=== PATIENT | male | born 1970 | race Caucasian/White ===

== ENCOUNTER 2018-12-23 14:04 | Outpatient (REF) | payer SELFPAY ==
[2018-12-23 19:23] LABS: ALT 78 U/L (16-63); Anion Gap 9.7 mmol/L (3-11); BUN 18 mg/dL (7-18); CO2 25.3 mmol/L (21.0-32.0); CREATININE 0.79 mg/dL (0.70-1.30); Calcium 8.8 mg/dL (8.5-10.1); Chloride 102 mmol/L (98-107); Glucose 120 mg/dL (70-100); LDL CHOLESTEROL 119 mg/dL (<100); Potassium 3.9 mmol/L (3.5-5.1); Sodium 137 mmol/L (136-145); TSH 1.53 uIU/mL (0.36-3.74)
[2018-12-23 19:39] LABS: ESR 3 mm/hr (0-15)
[2018-12-26 13:04] LABS: Lyme Ab w Rflx to Lyme Confirm Negative
== END 2018-12-23 14:24 ==
LOC: NCHCN 14:04
PROVIDERS: PCP Nurse Practitioner Family; Visit Provider Internal Medicine
DX: E11.9 Type 2 diabetes mellitus without complications (principal); I10 Essential (primary) hypertension; M13.862 Other specified arthritis, left knee
CPT/HCPCS: 80048; 83721; 85652; 84443; 84460; 86618

== ENCOUNTER 2020-09-25 10:54 | Outpatient (REF) | payer SELFPAY ==
[2020-09-25 21:05] LABS: ALT 43 U/L (16-63); AST 22 U/L (15-37); Albumin 4.3 g/dL (3.4-5.0); Alkaline Phosphatase 57 U/L (46-116); Anion Gap 8.9 mmol/L (3-11); BUN 16 mg/dL (7-18); Bilirubin, Total 0.8 mg/dL (0.2-1.0); CO2 27.1 mmol/L (21.0-32.0); CREATININE 0.7 mg/dL (0.70-1.30); Calcium 8.8 mg/dL (8.5-10.1); Calculated LDL 121 mg/dL (<100); Chloride 102 mmol/L (98-107); Cholesterol 184 mg/dL (<200); Glucose 83 mg/dL (74-106); HDL Cholesterol 47 mg/dL (40-60); Sodium 138 mmol/L (136-145); Total Protein 7.6 g/dL (6.4-8.2); Triglyceride 82 mg/dL (<150)
[2020-09-25 22:05] LABS: COMMENT (LAB VIEW ONLY) 26.57 mg/dL; Microalb ug/mg Crea 7.2 ug/mg Cr
== END 2020-09-25 10:55 | disposition home or self-care (01) ==
LOC: NCHCN 10:54
PROVIDERS: PCP Nurse Practitioner Family; Visit Provider Physician Assistant
DX: E11.9 Type 2 diabetes mellitus without complications (principal); I10 Essential (primary) hypertension
CPT/HCPCS: 80053; 80061; 82043; 82570

== ENCOUNTER 2021-11-19 09:03 | Day surgery (SDC) | payer SELFPAY ==
--- NOTE | 2021-11-19 07:17 | W.ANESPRE ---
General Info Date of Service Date Performed: 11/19/21 Height: 5 ft 3 in Weight: 74.559 kg Body Mass Index (BMI): 29.1 Surgical Procedure: Operation Date: 11/19/21 11:35 Proposed Procedure Side Surgeon p Colonoscopy Leilani Gerardo MD Meds Allergies and Home Medications Allergies Allergy/AdvReac Type Severity Reaction Status Date / Time No Known Allergies Allergy Verified 11/19/21 10:00 Home Medication Medication Instructions Recorded aspirin 81 mg tablet,delayed 81 mg PO DAILY 07/18/21 release (Adult Aspirin Regimen) canagliflozin 100 mg tablet 100 mg PO DAILY 07/18/21 (Invokana) glipizide 10 mg tablet, extended 10 mg PO DAILY 07/18/21 release 24 hr hydrochlorothiazide 25 mg tablet 25 mg PO DAILY 07/18/21 lisinopril 10 mg tablet 10 mg PO DAILY 07/18/21 metformin 500 mg tablet 1,000 mg PO BID 07/18/21 Current Visit Medications: Current Medications Generic Name Dose Route Start Last Admin Trade Name Bookerq PRN Reason Stop Dose Admin Ringer's Solution 1,000 mls @ 80 mls/hr 11/19/21 06:00 IV 12/18/21 23:59 INFUSION THI IV Miscellaneous Supplies 1 each 11/19/21 06:00 Iv Access IV 12/18/21 23:59 DIRECTED THI Sodium Chloride 0 ml 11/19/21 06:00 Normal Saline Flush 10 Ml Syr IV 12/18/21 23:59 PRN PRN Sodium Chloride 0 ml 11/19/21 06:00 Normal Saline 10 Ml Vial IJ 12/18/21 23:59 DIRECTED PRN Sterile Water 0 ml 11/19/21 06:00 Water,Injection,Sterile 10 Ml Vial IJ 12/18/21 23:59 DIRECTED PRN PFSH Active Problems Active Problems: Problem Status Onset Code Hypertension I10 Screening for colon cancer Z12.11 Medical History Medical History Arthritis of left knee Diabetes type 2, controlled GERD (gastroesophageal reflux disease) Seasonal allergies Vital Signs and Lab Results Lab Results Blood Type / Crossmatch: No Data to Display Complete Blood Count: No Data to Display Complete Metabolic Panel: No Data to Display Liver Function Panel: No Data to Display Coagulation Panel: No Data to Display Cardiac Panel: No Data to Display Arterial Blood Gas: No Data to Display Venous Blood Gas: No Data to Display Pancreas Panel: No Data to Display Thyroid Panel: No Data to Display Infectious Disease: No Data to Display Blood Cultures: No Data to Display Toxicology Panel: No Data to Display Anesthesia Assessment and Plan Anesthesia History Personal History: No History of Anesthesia Complications Family History: No Family History of Anesthesia Complications Exercise Tolerance Exercise Tolerance: Metabolic Equivalents>4 Pertinent Negatives Pertinent Negatives: No Symptoms of GERD, No Major Cardiovascular Symptoms or Complaints, No Major Pulmonary Symptoms or Complaints and No History of CVA/TIA Cardiac & Pulmonary Exam Cardiac Exam: Normal S1/S2 Heart Sounds Pulmonary Exam: Clear Bilateral Breath Sounds Implantable Cardiac Device Does patient have a Pacemaker or an ICD?: No Airway Exam Known Difficult Airway: No Mallampati Class: 1 Mouth Opening: Normal (> 3cm) Thyromental Distance: Greater than 3 cm Neck Range of Motion: Full ROM Neck Circumference: Normal Teeth Condition: Normal Dentition Airway Comments: #41 painful ASA Classification ASA Score: ASA 2 Emergency Case?: No NPO Status NPO Status: NPO Clears >2 hours, Solids >8 hours Anesthesia Plan Resuscitation Status: Full Code Anesthesia Technique: General Anesthesia Airway Planned: Natural Airway Monitors Used: Standard Monitors Preoperative Comments:: 51 yo male for first colo. Sig PMHx: DM2 (glipizide, metformin, canagliflozin), GERD, HTN (lisinopril).
--- NOTE | 2021-11-19 07:40 | COLE_ITS ---
Colonoscopy Report Date of procedure: 11/19/21 Pre-op diagnosis general: colon cancer screening Post-op diagnosis procedure note: same Procedure: Colonoscopy Surgeon: Leilani Gerardo Anesthesia Type: General:No Airway Estimated blood loss (mL): 0 Pathology: none sent Complications: None Disposition: same day Indications: The patient? is a pleasant? 51-year-old male who is here to discuss another screening colonoscopy. ? He denies any changes in bowel habits, melena, hem atochezia, unintentional weight loss or family history of colon cancer.? The procedure and risks were discussed.? The prep was reviewed in detail.? Risks, benefits and complications have been reviewed. Complications include but are not limited to bleeding, pain, perforation, missed small lesion/polyp, sore throat, aspiration and adverse reaction to the medications. Questions were entertained and answered to their satisfaction and they wished to proceed. No guarantees were given or implied.? All instruction and explanations of the procedure were given in greenlandic. Prep: Miralax/Dulcolax Procedure Start Time: 11:05 Procedure End Time: 11:29 Retraction Time: 12 minutes Findings: Normal Procedure Description: After informed consent was obtained the patient was taken to the procedure room and placed in a left decubitous position. Monitors were applied and a time out was done. The patients name, date of , procedure, allergies to medications and metal in their body was reviewed. The patient was then sedated. Once sedated and comfortable a rectal exam was done. External exam was normal. Internal exam revealed a normal sphincter tone and no palpable masses. The prostate was smooth. The scope was then introduced and retro-flexed. no internal hemorrhoids, polyps or masses were identified on retro-flexion. The scope was then advanced to the cecum without difficulty. The ileocecal vlave and appendiceal orifice were identified. The prep was good. The scope was then slowly retracted over 12 minutes back into the rectum. There were no polyps and no diverticulosis was noted. The scope was removed and the patient was woken up and taken back to Same day surgery in stable condition. The patient tolerated the procedure well and there were no immediate complications. Follow up: The patient should follow up in 10 years unless they develop changes in bowel habits or other new gastrointestinal complaints.
--- NOTE | 2021-11-19 07:41 | W.PM.DSUDISC ---
Discharge Plan Disposition Patient Disposition: HOME Condition: Good Discharge Details Reason For Visit: colonoscopy Attending Provider: Leilani Gerardo Primary Care Provider: Anusha Mccurdy Home Meds and New Rx's Prescriptions: Continued lisinopril 10 mg tablet 10 mg PO DAILY metformin 500 mg tablet 1,000 mg PO BID hydrochlorothiazide 25 mg tablet 25 mg PO DAILY aspirin [Adult Aspirin Regimen] 81 mg tablet,delayed release (DR/EC) 81 mg PO DAILY Invokana 100 mg tablet 100 mg PO DAILY glipizide 10 mg tablet extended release 24hr 10 mg PO DAILY Discharge Instructions Additional Instructions: [place]: Todo estaba normal La proxima Colonoscopia deberia ser en 10 anos Porfavor bimal a la officina si tiene: Fiebres >101.5 Nausea y Vomitos Dolor del abdomen Sie tiene benjamin del Recto que es mas de 1/2 taza El Abdoemn esta alejandra y no puede pasar gas por el recto DAY SURGERY UNIT POST ENDOSCOPY INSTRUCTIONS Instructions for everyone who is given Anesthesia: For your safety, please do the following for the next 24 Hours: a. Do not drive or operate dangerous equipment b. Do not drink alcohol beverages or use any recreational drugs for the first 24 hours or while taking pain medications. The medications in your body may have a reaction that can be dangerous. c. Do not make any important decisions or sign any important papers 1. Generally there are no restrictions on your activity after a day or so has gone by, but you may feel a bit fatigued for a few days. 2. After you arrive home you may have a light meal and return to a normal diet as you can tolerate it without feeling sick to your stomach. 3. After surgery, you may feel pain or discomfort. This should be only transient, but if it persists please contact your doctor. 4. If there are any questions regarding the findings of your procedure, please feel free to contact your doctor. 6. If you are unable to contact your doctor with a problem, contact the hospital at [phone]. 7. Continue all your regular medications unless directed otherwise. I understand the above instructions and have no questions. Signature of Patient or Responsible Adult Escort Date/Time Name of Responsible Adult Escort Signature of Nurse Date/Time Activity:: Activity as Tolerated Diet:: As Tolerated Discharge Orders Discharge Orders: Discharge Order (Routine); Ordered 11/19/21 Ordered By: Leilani Gerardo
[2021-11-19] MEDS: Lactated Ringers 1,000 ML 80 ML IV (10:00)
[2021-11-19 10:07] VITALS: BP 135/96; PULSE 66; RESP 15; TEMP 36.3; O2SAT 99
[2021-11-19 10:47] VITALS: BMI 29.1
[2021-11-19 11:40] VITALS: BP 123/96; PULSE 64; RESP 15; TEMP 36.5; O2SAT 98
--- NOTE | 2021-11-19 11:41 | ANES.POST_ITS ---
Postoperative Evaluation Date, Time and Location Date Performed: 11/19/21 Time Performed: 11:41 Patient Location: Day Surgery Unit Vital Signs Most Recent Imported Vital Signs: Most Recent Vital Signs Temp Pulse Resp BP Pulse Ox 36.3 C L 66 15 135/96 H 99 11/19/21 10:07 11/19/21 10:07 11/19/21 10:07 11/19/21 10:07 11/19/21 10:07 Most Recent Manually Entered Vital Signs: Adult Blood Pressure: 123/96 Heart Rate: 87 Respirations: 12 Oxygen Saturation (%): 98 Temperature (C): 36.3 C Pain Score (0-10 Scale): 0 Pain Score Most Recent Pain Score: Most Recent Pain Score Pain Level 0 11/19/21 10:07 Assessment Mental Status: Awake (Alert & Oriented to Patient Baseline) Airway and Respiratory Function: Patent airway with normal (patient baseline) respiratory exam Cardiovascular Function: Hemodynamically Stable Hydration Status: Adequately Hydrated Nausea & Vomiting: No Nausea or Vomiting Pain: Pt. 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
[2021-11-19 11:44] VITALS: BP 123/96; PULSE 87; RESP 12; TEMPC 36.3; O2SAT 98
[2021-11-19 12:17] VITALS: BP 140/96; PULSE 58; RESP 15; TEMP 36.1; O2SAT 98
== END 2021-11-19 12:20 | disposition home or self-care (01) ==
LOC: SUR 09:07
PROVIDERS: PCP Physician Assistant; Visit Provider Surgery
PROC: 0DJD8ZZ Inspection of Lower Intestinal Tract, Via Natural or Artificial Opening Endoscopic (ICD-10-PCS; CPT 45378; principal; 2021-11-19 11:30)
DX: Z12.11 Encounter for screening for malignant neoplasm of colon (principal)
CPT/HCPCS: 45378

== ENCOUNTER 2022-02-25 10:37 | Outpatient (REF) | payer SELFPAY ==
[2022-02-25 20:10] LABS: Anion Gap 6.5 mmol/L (3-11); BUN 19 mg/dL (7-18); CO2 27.5 mmol/L (21.0-32.0); CREATININE 0.9 mg/dL (0.70-1.30); Calcium 8.9 mg/dL (8.5-10.1); Chloride 99 mmol/L (98-107); Glucose 71 mg/dL (74-106); Potassium 3.7 mmol/L (3.5-5.1); Sodium 133 mmol/L (136-145)
== END 2022-02-25 10:38 | disposition home or self-care (01) ==
LOC: NCHCN 10:37
PROVIDERS: PCP Physician Assistant; Visit Provider Physician Assistant
DX: E11.9 Type 2 diabetes mellitus without complications (principal)
CPT/HCPCS: 80048